=== PATIENT | female | born 2000 | race American Indian/Alaskan Native ===

== ENCOUNTER 2021-08-02 18:06 | Emergency (ER) | payer SELFPAY ==
[2021-08-02 18:15] VITALS: BP 120/76
--- NOTE | 2021-08-02 18:51 | XRay Report ---
CHEST 2 VIEWS INDICATION: cough. COMPARISON: None FINDINGS: SUPPORT DEVICES: None. HEART: Within normal limits. LUNGS/PLEURA: No acute air space or interstitial disease. No pneumothorax. ADDITIONAL FINDINGS: None. IMPRESSION: 1. No acute findings. Signer Name: Alfredo Cifuentes MD Signed: 08/02/2021 6:46 PM Workstation Name: [id number]
--- NOTE | 2021-08-02 19:11 | Emergency Department Report ---
- General Chief Complaint: Sore Throat Stated Complaint: SORE THROAT /COUGH/HEADACHES/VOMITING Time Seen by Provider: 08/02/21 18:22 Source: patient Mode of arrival: Ambulatory Limitations: No Limitations - History of Present Illness Initial Comments: Patient is a 21-year-old female presents emergency room complaints of a sore throat that began 3 days ago. She has associated cough, rhinorrhea. She states that she had one episode of posttussis emesis today. She denies any fever, diarrhea, shortness of breath, chest pain. States her daughter is sick with cold-like symptoms. She has not been vaccinated for COVID-19. She denies any recent travel. Past medical history of umbilical hernia. No allergies to medications. she has implanted control. - Related Data Previous Rx's Medication Instructions Recorded Last Taken Type Benzonatate [Tessalon Perles] 100 mg PO Q8HR PRN #12 capsule 08/02/21 Unknown Rx Nystas/Diphen/Xyl Visc/Mylanta 30 ml MM Q4H PRN #300 ml 08/02/21 Unknown Rx [Magic Mouthwash] guaiFENesin ER [Mucinex ER] 600 mg PO Q12H #14 tablet.er 08/02/21 Unknown Rx Allergies Allergy/AdvReac Type Severity Reaction Status Date / Time No Known Allergies Allergy Unverified 08/02/21 18:14 ED Review of Systems ROS: Stated complaint: SORE THROAT /COUGH/HEADACHES/VOMITING Other details as noted in HPI Comment: All other systems reviewed and negative ED Past Medical Hx - Past Medical History Previous Medical History?: Yes Additional medical history: Umbilical hernia - Surgical History Past Surgical History?: Yes Additional Surgical History: Umbilical hernia - Medications Home Medications: Home Medications Medication Instructions Recorded Confirmed Last Taken Type Benzonatate [Tessalon Perles] 100 mg PO Q8HR PRN #12 capsule 08/02/21 Unknown Rx Nystas/Diphen/Xyl Visc/Mylanta 30 ml MM Q4H PRN #300 ml 08/02/21 Unknown Rx [Magic Mouthwash] guaiFENesin ER [Mucinex ER] 600 mg PO Q12H #14 tablet.er 08/02/21 Unknown Rx ED Physical Exam - General Limitations: No Limitations General appearance: alert, in no apparent distress - Head Head exam: Present: atraumatic, normocephalic - Eye Eye exam: Present: normal appearance. Absent: conjunctival injection - ENT ENT exam: Present: normal orophraynx, mucous membranes moist, TM's normal bilaterally, normal external ear exam - Neck Neck exam: Present: full ROM. Absent: meningismus - Respiratory Respiratory exam: Present: normal lung sounds bilaterally. Absent: respiratory distress, wheezes, rales, rhonchi, stridor, chest wall tenderness, accessory muscle use, decreased breath sounds, prolonged expiratory - Cardiovascular Cardiovascular Exam: Present: regular rate, normal rhythm, normal heart sounds. Absent: systolic murmur, diastolic murmur, rubs, gallop - Neurological Exam Neurological exam: Present: alert, oriented X3 - Psychiatric Psychiatric exam: Present: normal affect, normal mood - Skin Skin exam: Present: warm, dry, intact. Absent: rash ED Course Vital Signs 08/02/21 18:13 Temperature 99.0 F Pulse Rate 101 H Respiratory 18 Rate Blood Pressure 120/76 O2 Sat by Pulse 99 Oximetry ED Medical Decision Making - Radiology Data Radiology results: report reviewed Ordering Physician: VANNESA SHEA Date of Service: 08/02/21 Procedure(s): XR chest routine 2V Accession Number(s): [id number] cc: VANNESA SHEA Fluoro Time In Minutes: CHEST 2 VIEWS INDICATION: cough. COMPARISON: None FINDINGS: SUPPORT DEVICES: None. HEART: Within normal limits. LUNGS/PLEURA: No acute air space or interstitial disease. No pneumothorax. ADDITIONAL FINDINGS: None. IMPRESSION: 1. No acute findings. Signer Name: Alfredo Cifuentes MD Signed: 08/02/2021 6:46 PM Workstation Name: [id number] Transcribed By: MARY Dictated By: Alfredo Cifuentes MD Electronically Authenticated By: Alfredo Cifuentes MD Signed Date/Time: 08/02/211845 DD/ 45 TD/TT: - Medical Decision Making Patient is a 21-year-old female presents emergency room complaints of a sore throat that began 3 days ago. She has associated cough, rhinorrhea. She states that she had one episode of posttussis emesis today. She denies any fever, diarrhea, shortness of breath, chest pain. States her daughter is sick with cold-like symptoms. She has not been vaccinated for COVID-19. She denies any recent travel. Past medical history of umbilical hernia. No allergies to medications. she has implanted control. Vitals are stable. On exam: Normal oropharynx, breath sounds are clear bilaterally. Chest x-ray 1. No acute findings. Symptoms likely related to URI. No signs of pharyngitis, tonsillitis, PNA, bacterial bronchitis. Patient given prescription for medication. Discussed supportive care and symptomatic treatment with patient. Advised patient please take medication as prescribed. increase your fluid int josefina. follow up with a primary care doctor. return to the emergency room for any new or worsening symptoms. recommend outpatient COVID 19 testing and if positive will need to self quarantine for 10 days from the onset of symptoms. Critical care attestation.: If time is entered above; I have spent that time in minutes in the direct care of this critically ill patient, excluding procedure time. ED Disposition Clinical Impression: URI (upper respiratory infection) Qualifiers: URI type: unspecified URI Qualified Code(s): J06.9 - Acute upper respiratory infection, unspecified Disposition: 01 HOME / SELF CARE / HOMELESS Is pt being admited?: No Does the pt Need Aspirin: No Condition: Stable Instructions: Viral Respiratory Infection Additional Instructions: please take medication as prescribed. increase your fluid intake. follow up with a primary care doctor. return to the emergency room for any new or worsening symptoms. recommend outpatient COVID 19 testing and if positive will need to self quarantine for 10 days from the onset of symptoms. Prescriptions: Nystas/Diphen/Xyl Visc/Mylanta [Magic Mouthwash] 30 ml MM Q4H PRN #300 ml PRN Reason: sore throat guaiFENesin ER [Mucinex ER] 600 mg PO Q12H #14 tablet.er Benzonatate [Tessalon Perles] 100 mg PO Q8HR PRN #12 capsule PRN Reason: cough Referrals: VIANEY JASON MD [Primary Care Provider] - 3-5 Days [facility] [Provider Group] - 3-5 Days JANICE SHUKLA MD [Staff Physician] - 3-5 Days Time of Disposition: 19:12 Print Language: TAJIK
== END 2021-08-02 19:31 | disposition home or self-care (01) ==
LOC: ED 18:06
DX: J06.9 Acute upper respiratory infection, unspecified (principal)
CPT/HCPCS: 71046; 99283

== ENCOUNTER 2021-12-30 19:01 | Emergency (ER) | payer SELFPAY | END 2021-12-30 21:15 | disposition left against medical advice (07) | LOC: ED 19:01 | DX: G43.909 Migraine, unspecified, not intractable, without status migrainosus (principal); Z53.21 Procedure and treatment not carried out due to patient leaving prior to being seen by health care provider ==